=== PATIENT | male | born 1955 | race Caucasian/White ===

== ENCOUNTER 2016-08-02 07:04 | Observation (INO) | payer OTHER ==
[2016-07-29 17:20] LABS: HEMATOCRIT 47.3 % (40.0-51.0); HEMOGLOBIN 15.6 g/dL (13.6-17.8)
[2016-07-29 17:46] LABS: CALCIUM, SERUM 9.3 MG/DL (8.5-10.4); CHLORIDE, SERUM 105 MMOL/L (96-112); CO2 (CARBON DIOXIDE) 26 MMOL/L (24-34); CREATININE 1.25 MG/DL (0.70-1.30); GFR AFRICAN AMERICAN 72 ML/MIN (>=60); GFR NON AFRICAN AMERICAN 62 ML/MIN (>=60); POTASSIUM, SERUM 4.3 MMOL/L (3.5-5.3); SODIUM, SERUM 137 MMOL/L (135-148)
[2016-07-29 17:48] LABS: BUN (BLOOD UREA NITROGEN) 19 MG/DL (6-23); GLUCOSE, SERUM 95 MG/DL (60-99)
--- NOTE | ~2016-08-02 | OP ---
Record Of Operation [facility] [address] [place]. 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 PROCEDURE: Right true vocal cord medialization using a Grant thyroplasty prosthesis. ASSISTANTS: Dr. Lara. ANESTHESIA: General endotracheal. ESTIMATED BLOOD LOSS: 25 mL. INTRAOPERATIVE FLUIDS: 550 mL crystalloid. INTRAOPERATIVE FINDINGS: Optimal voice achieved with the use of a #11 Grant thyroplasty prosthesis with the patient maintaining a good airway. OPERATIVE PROCEDURE: The patient was identified in the holding room, transported the operating room. In the operating room, the patient was placed on the operating room table in the supine position. Following administration of IV sedation with propofol, a proposed incision was diagrammed in the right neck, overlying the midportion of the thyroid cartilage. This area was then injected with 1% lidocaine with 1:100,000 epinephrine. The patient was prepped and draped in a sterile fashion. An incision was created through the aforementioned area of the neck in a horizontal fashion. Dissection was carried down to the level of the platysma muscle. The platysma muscle was sharply divided. Superior and inferior subplatysmal flaps were developed for exposure. The sternohyoid muscle was identified and retracted laterally to expose the thyroid cartilage. The thyrohyoid muscle was divided along the inferior aspect of the thyroid cartilage and reflected superiorly to identify the posterior aspect of the right thyroid ala. The posterior aspect of the thyroid ala was isolated. Using the supplied measuring instruments, the appropriate measurements were performed for creation of the window in the thyroid cartilage. With the window demarcated, the window was created using the oscillating saw. The cartilage was removed. The perichondrium was elevated from the inner aspect of the cartilage to create a pocket for placement of the prosthesis. The prosthesis Sizer was employed working from a #8, increasing sequentially with vocalization throughout the placement of the Sizer. Optimal voice was achieved with the use of the #11 prosthesis without airway impingement. A flexible laryngoscopy was performed at this point, which did reveal the right true vocal cord to be in the midline with the #11 prosthesis with an adequate airway with inspiration. With these findings, a #11 prosthesis was placed into the cartilaginous window. With the prosthesis in place, the thyrohyoid muscle was then reapproximated over the prosthesis and secured with interrupted 3-0 Vicryl suture. At this point, there was no significant Record Of Operation [facility] [id number] [place]. [address] NAME: MALINDA AYALA JR : 55 STATUS : DIS Pranay PAT#: [id number] AGE: 61 ADM/REG DATE : 08/02/16 MR#: [id number] REPORT SERV DATE: 08/09/16 DICTATED BY: RUBEN REA DATE: 08/09/16 REPORT STATUS : Draft TRANSCRIBED BY: RADHA DATE: 08/09/16 bleeding identified, and I opted not to place a neck drain. The sternohyoid muscles were then reapproximated in the midline with interrupted 3-0 Vicryl suture. Similar suture material was used to approximate the platysma muscle. A running 5-0 Prolene suture was placed in a subcuticular fashion for skin closure. Steri-Strips were applied to the wound. At the end of the operative procedure, the patient was awakened from anesthesia and transported to recovery room in good condition. The patient tolerated the procedure well. There were no apparent complications. There were no specimen. JOAN/RADHA Ruben Rea M.D. / [id number] CC: Jerry Camarillo BRIAN
[~2016-08-02 07:04] MED LIST: AMIT25 PO; ASAB PO; CELEXA10 PO; CYANO1000T PO; D 5000 PO; FLEXERIL5 MG PO; HALF81 PO; KLONO5 PO; LEVOTHYROXIN125 MCG PO; MAXIMUM D3 PO; NORCO1 TA1 PO; OXYCCODUDL PO; PCET PO; PERCOCET1 TA4 PO; PR12.5; PRILO PO; PRIM50B PO; PRIN20 PO; PROTONIX PO; SYN125 PO; TAPAZOLE5 MG PO; TUMSROLL PO; X5 PO; ZANTAC 75 PO; ZESTRIL20 MG PO; ZOFRAN4
== END 2016-08-03 10:09 | disposition home or self-care (01) ==
LOC: SDC 07:04 → SDC/OF 12:55 → 5SO 14:32
PROVIDERS: Otolaryngology
PROC: 3E0F8GC Introduction of Other Therapeutic Substance into Respiratory Tract, Via Natural or Artificial Opening Endoscopic (ICD-10-PCS; principal; 2016-08-02 09:00)
DX: J38.01 Paralysis of vocal cords and larynx, unilateral (principal); R49.0 Dysphonia; K22.0 Achalasia of cardia; I10 Essential (primary) hypertension; Z88.0 Allergy status to penicillin; Z88.6 Allergy status to analgesic agent; Z98.890 Other specified postprocedural states; Z77.22 Contact with and (suspected) exposure to environmental tobacco smoke (acute) (chronic); Z79.899 Other long term (current) drug therapy
CPT/HCPCS: 80048; 85014; 85018; 93005; 96374; 96376; A9270-GY; G0378; J0690; J2250; J2270; J2370; J2405; J3010